=== PATIENT | male | born 1990 | race Two or more races ===

== ENCOUNTER 2019-07-28 21:10 | Emergency (ER) | payer SELFPAY ==
[2019-07-28] MEDS ORDERED: IBUPROFEN 800 MG TABLET PO ONE (21:22)
--- NOTE | 2019-07-28 21:23 | ER Document Report ---
ED Medical Screen (RME) - General Stated Complaint: FLU LIKE SYMPTOMS Time Seen by Provider: 07/28/19 21:22 Notes: 28-year-old male presents with flulike symptoms since yesterday. Patient states cough, generalized body aches, nausea/vomiting. Patient denies any abdominal pain. Lungs clear to auscultation bilaterally. Regular rate and rhythm. Abdomen soft nontender. Patient has a fever of 102.4 in triage. Patient states he has been taking Tylenol, last dose was 10:00 this morning. I have greeted and performed a rapid initial assessment of this patient. A comprehensive ED assessment and evaluation of the patient, analysis of test results and completion of the medical decision making process with be conducted by additional ED providers. Physical Exam - Vital signs Vitals: Temp Pulse Resp BP Pulse Ox 102.4 F H 100 16 148/74 H 96 07/28/19 21:15 07/28/19 21:15 07/28/19 21:15 07/28/19 21:15 07/28/19 21:15 Course - Vital Signs Vital signs: Temp Pulse Resp BP Pulse Ox 102.4 F H 100 16 148/74 H 96 07/28/19 21:15 07/28/19 21:15 07/28/19 21:15 07/28/19 21:15 07/28/19 21:15
--- NOTE | 2019-07-28 22:32 | RADIOLOGY REPORT (SQ) ---
EXAM DESCRIPTION: XR CHEST 2 VIEWS COMPLETED DATE/TME: 07/28/2019 21:22 CLINICAL HISTORY: 28 years, Male, cough, fever COMPARISON: None. NUMBER OF VIEWS: 2 TECHNIQUE: 2 views of the chest LIMITATIONS: None. FINDINGS: The heart size is normal. The lungs are clear. No pneumothorax IMPRESSION: Negative chest copyright 2011 [email or web address]- All Rights Reserved
--- NOTE | 2019-07-28 22:50 | ER Document Report ---
ED Flu Like - General Chief Complaint: Flu Symptoms Stated Complaint: FLU LIKE SYMPTOMS Time Seen by Provider: 07/28/19 21:22 Mode of Arrival: Ambulatory Information source: Patient Notes: This 28-year-old man presents to the emergency department with a history of flulike symptoms which began yesterday. He complains of fever, body aches and pains, congestion and drainage with cough. He has been using Tylenol for the fever, last dose taken this morning. Presently taking no other medications and has no other medical diagnoses. TRAVEL OUTSIDE OF THE [place] IN LAST 30 DAYS: No Past Medical History - Social History Smoking Status: Never Smoker Family History: Reviewed & Not Pertinent Patient has suicidal ideation: No Patient has homicidal ideation: No Review of Systems - Review of Systems Notes: Constitutional: + Fever. HENT: + Nasal congestion Eyes: Negative for visual changes. Cardiovascular: Negative for chest pain. Respiratory: Negative for shortness of breath. Gastrointestinal: Negative for abdominal pain, vomiting or diarrhea. Genitourinary: Negative for dysuria. Musculoskeletal: + Myalgia Skin: Negative for rash. Neurological: Negative for headaches, weakness or numbness. 10 point ROS negative except as marked above and in HPI. Physical Exam - Vital signs Vitals: Temp Pulse Resp BP Pulse Ox 102.4 F H 100 16 148/74 H 96 07/28/19 21:15 07/28/19 21:15 07/28/19 21:15 07/28/19 21:15 07/28/19 21:15 - Notes Notes: PHYSICAL EXAMINATION: Physical Exam: General: Ill-appearing 28-year-old man complaining of myalgias HEENT: NC/AT, pupils equal round and reactive to light, MM moist, oropharynx clear + nasal congestion Neck: supple, no adenopathy, no masses. Lungs: clear, no wheezing, no rales no rhonchi CVS: Regular rate and rhythm no murmur gallop or rub Abdomen: Soft active nontender, no masses, no hepatosplenomegaly Ext: No edema clubbing or cyanosis. Neuro: Alert and responsive, moving all 4 extremities on command, cranial nerves intact. Skin: Intact no open lesions, no rash PSYCH: Normal mood, normal affect. Course - Vital Signs Vital signs: Temp Pulse Resp BP Pulse Ox 101.9 F H 101 H 20 147/93 H 98 07/29/19 00:01 07/29/19 00:01 07/29/19 00:01 07/29/19 00:01 07/29/19 00:01 - Diagnostic Test Radiology reviewed: Image reviewed, Reports reviewed - Chest x-ray: No acute infiltrates or effusions. Discharge - Discharge Clinical Impression: Influenza Fever Qualifiers: Fever type: unspecified Qualified Code(s): R50.9 - Fever, unspecified Condition: Good Disposition: HOME, SELF-CARE Instructions: Acetaminophen Additional Instructions: You are diagnosed with influenza in the emergency department tonight, please push fluids, use Tylenol and alternate with ibuprofen for fever and pain control, please take the Tamiflu as prescribed. Influenza is usually a self- limiting illness, however if you developed worsening symptoms, dizziness, lightheadedness or worsening respiratory status please return to emergency department for further evaluation and treatment. Prescriptions: Oseltamivir Phosphate [Tamiflu 75 mg Capsule] 75 mg PO BID #10 capsule Forms: Return to Work
[2019-07-28] MEDS ORDERED: ACETAMINOPHEN 325 MG TABLET PO ONE (23:23)
[2019-07-28 23:24] LABS: A TYPE INFLUENZA AG POSITIVE (NEGATIVE); B INFLUENZA AG NEGATIVE (NEGATIVE)
[2019-07-28] MEDS ORDERED: OSELTAMIVIR PHOSPHATE 75 MG CAPSULE PO ONE (23:24)
[2019-07-29 00:03] VITALS: BP 147/93
== END 2019-07-29 00:01 | disposition home or self-care (01) ==
LOC: ER 21:10
DX: J11.1 Influenza due to unidentified influenza virus with other respiratory manifestations (principal); R50.9 Fever, unspecified; M79.10 Myalgia, unspecified site; R05 Cough; R09.81 Nasal congestion
CPT/HCPCS: 99283; 87804; 71046; J3490